=== PATIENT | female | born 1985 | race Caucasian/White ===

== ENCOUNTER 2017-08-29 10:22 | Emergency (ER) | payer MEDICAID, OTHER ==
[~2017-08-29] VITALS: Ht 165.1 cm; Wt 97.5 kg
[2017-08-29 10:24] VITALS: BP 136/90
--- NOTE | 2017-08-29 10:26 | NUR ---
PATIENT TO CHAIR D
--- NOTE | 2017-08-29 10:40 | NUR ---
31/F PRESENT TO ER C/O ALLERGIC REACTION OF HER MEDICATION, AMITRIPTYLINE, WITH FACIAL SWELLING SINCE THIS AM. PT DENIES N/V/D; SKIN IS PINK/WARM/DRY; AAOX4 WITH EVEN AND STEADY GAIT; LUNGS CLEAR BL; HR EVEN AND REGULAR; PT DENIES ANY FEVER, CP, SOB, OR COUGH AT THIS TIME; PATIENT STATES PAIN OF 3/10 AT THIS TIME; VSS; PATIENT POSITIONED FOR COMFORT; HOB ELEVATED; BEDRAILS UP X2; BED DOWN. ER MD MADE AWARE OF PT STATUS.
--- NOTE | 2017-08-29 10:57 | NUR ---
DR. MEDINA EVALUATING PATIENT
[2017-08-29 11:30] VITALS: BP 132/88
--- NOTE | 2017-08-29 11:36 | NUR ---
Patient discharged with v/s stable. Written and verbal after care instructions given and explained. Patient verbalized understanding. Ambulatory with steady gait. All questions addressed prior to discharge. Advised to follow up with PMD.
== END 2017-08-29 11:36 | disposition home or self-care (01) ==
LOC: MED 10:22
DX: R22.0 Localized swelling, mass and lump, head (principal); T43.015A Adverse effect of tricyclic antidepressants, initial encounter; I10 Essential (primary) hypertension; Z85.848 Personal history of malignant neoplasm of other parts of nervous tissue; Z88.8 Allergy status to other drugs, medicaments and biological substances; Z88.6 Allergy status to analgesic agent; Y92.89 Other specified places as the place of occurrence of the external cause
CPT/HCPCS: 99283

== ENCOUNTER 2017-12-01 09:50 | Inpatient (IN) | payer OTHER ==
[~2017-12-01] VITALS: Ht 167.6 cm; Wt 99.8 kg
[2017-12-01 10:04] VITALS: BP 128/101
--- NOTE | 2017-12-01 10:10 | NUR ---
PT AMBULATES TO BED 1, REPORT GIVEN TO EFFIE SOUZA
--- NOTE | 2017-12-01 10:10 | NUR ---
PT. CAME INTO THE ED DUE TO ABD PAIN X 6 MONTHS BUT HAS BEEN WORSE THE LAST WEEK. PT. STATES " I AM SCHEDULED TO HAVE SURGERY BUT IT STILL HAS NOT GONE THROUGH WITH THE INSURANCE BECAUSE I HAVE A MASS IN MY STOMACH THAT HAS ENGULFED ONE OF MY OVARIES". PT AHS 6/10 PAIN THAT IS DESCRIBED TWISTING THAT STARTS ON RLQ AND RADIATES ALL OVER ABD TO RLL. PT. DENIES ANY N/V/D. PT. DENIES ANY FEVERS. PT HAS SOFT AND ROUND ABD. THAT IS TENDER UPON PALPATION ON RLQ. PT. HAS RR EVEN AND UNLABORED. ER MD NOTIFIED. WILL CONTINUE TO MONITOR. AT BEDSIDE. SAFETY PRECAUTIONS IMPLEMENTED.
[2017-12-01] MEDS ORDERED: ONDANSETRON 4 MG/2 ML VIAL IVP ONE (10:45)
[2017-12-01] MEDS ORDERED: MORPHINE SULFATE 4 MG/ML SYR IVP ONE ×2 (10:45→12:50)
--- NOTE | 2017-12-01 11:11 | NUR ---
ULTRASOUND AT BEDSIDE AT THIS TIME
[2017-12-01 11:20] LABS: APPEARANCE,URINE CLEAR (CLEAR); BILIRUBIN,URINE NEGATIVE (NEGATIVE); BLOOD, URINE NEGATIVE (NEGATIVE); COLOR,URINE YELLOW (YELLOW); LEUKOCYTE ESTERASE ,URINE NEGATIVE (NEGATIVE); NITRITE, URINE NEGATIVE (NEGATIVE); UGLUCOSE NEGATIVE (NEGATIVE)
[2017-12-01 11:33] LABS: RBC,URINE 0-5 (RARE) /HPF (0-5); WBC,URINE 0-5 (RARE) /HPF (0-5)
[2017-12-01 11:44] LABS: ANION GAP 15.1 (8-16); CARBON DIOXIDE 25.2 mmol/L (21-32); CREATININE 0.9 mg/dL (0.6-1.3); POTASSIUM 4.3 mmol/L (3.5-5.1)
[2017-12-01 11:50] LABS: ALBUMIN 3.9 g/dL (3.4-5.0); TOTAL BILIRUBIN 0.7 mg/dL (0.0-1.0)
--- NOTE | 2017-12-01 12:30 | NUR ---
PT. RESTING COMFORTABLY IN BED, RR EVEN AND UNLABORED. AT BEDSIDE. WILL CONTINUE TO MONITOR
--- NOTE | 2017-12-01 13:24 | NUR ---
PT. SLEEPING COMFORTABLY IN BED, RR EVEN AND UNLABORED. BED IN LOWEST POSITION. / PAIN AT THIS TIME. WILL CONTINUE TO MONITOR.
[2017-12-01 13:39] LABS: BASOPHILS # (AUTO) 0.1 K/uL (0.00-0.22); BASOPHILS % (AUTO) 0.8 % (0.0-2.0); EOSINOPHILS # (AUTO) 0.2 K/uL (0-0.4); EOSINOPHILS % (AUTO) 3.7 % (0.0-4.0); HEMATOCRIT 41.7 % (36-48); HEMOGLOBIN 14.3 g/dL (12.0-16.0); LYMPHOCYTES # (AUTO) 2.2 K/uL (2.5-16.5); LYMPHOCYTES % (AUTO) 34.2 % (20.5-51.1); MEAN CORPUSCULAR HEMOGLOBIN 31 pg (27-31); MEAN CORPUSCULAR HGB CONC 34 g/dL (33-37); MEAN CORPUSCULAR VOLUME 91.3 fL (80-94); MONOCYTES # (AUTO) 0.4 K/uL (0.8-1.0); MONOCYTES % (AUTO) 6.1 % (1.7-9.3); NEUTROPHILS # (AUTO) 3.5 K/uL (1.8-7.7); NEUTROPHILS % (AUTO) 55.2 % (42.2-75.2); PLATELET COUNT (AUTO) 177 K/uL (140-450); RED BLOOD CELL COUNT(AUTO) 4.57 MIL/uL (4.20-5.40); WHITE BLOOD COUNT (AUTO) 6.4 K/uL (4.8-10.8)
--- NOTE | 2017-12-01 14:30 | NUR ---
PT. RESTING COMFORTABLY, RR EVEN AND UNLABORED. BED IN LOWEST POSITION. WILL CONTINUE TO MONITOR.
[2017-12-01] MEDS ORDERED: ACETAMINOPHEN 325 MG TAB PO PRN (14:45)
--- NOTE | 2017-12-01 15:43 | NUR ---
Patient will be admitted to care of DR. ALBA . Admited to MED SURG . Will go to room 112B. Belongings list completed. Report to EFFIE RODRIGUES .
--- NOTE | 2017-12-01 15:43 | NUR ---
PATIENT ARRIVED ON FLOOR VIA WHEELCHAIR, REPORT GIVEN AT BEDSIDE BY ER NURSE FOR CONTINUITY OF CARE. PATIENT AMBULATED TO BED ON STEADY GAIT. PATIENT AOX4, RESPIRATIONS EVEN AND UNLABORED, IV SITE INTACT, PATENT AND ASYMPTOMATIC, SL AT THE MOMENT. PATIENT STATED 3/10 PAIN, WILL MEDICATE AFTER ASSESSMENT AND SEE WHAT IS ON EMR. PATIENT VERBALIZED UNDERSTANDING. LUNG SOUNDS CLEAR, ACTIVE BOWEL SOUNDS. UPDATED BOARD. SAFETY PRECAUTION IN PLACE, CALL LIGHT WITHIN REACH. WILL CONTINUE TO MONITOR PATIENT.
--- NOTE | 2017-12-01 15:54 | NUR ---
PAGED DR. ALBA, WILL WAIT FOR HIS CALL BACK.
[2017-12-01 16:00] VITALS: BP 121/81
--- NOTE | 2017-12-01 16:15 | NUR ---
PAGED DR. ALBA, WILL WAIT FOR HIS CALL BACK.
--- NOTE | 2017-12-01 16:20 | NUR ---
DR ALBA ON THE FLOOR. IN TO SPEAK WITH THE PATIENT. HE REQUESTED THAT RN BE IN ROOM WELL PER PATIENT'S REQUEST. WHEN RN CAME TO ROOM, PATIENT CRYING AND AGITATED. STATED THAT DR. ALBA WAS NOT LISTENING TO HER AND WAS "CONDESCENDING". DR. ALBA WAS ATTEMPTING TO EXPLAIN PATIENT'S PAIN MEDICATION AND PATIENT'S ALLERGIES. PATIENT'S KODAK, ASKED DR. ALBA TO GO OUTSIDE. KODAK EXPLAINED ABOUT PATIENT'S CONDITION AND STATE OF MIND. RN AND DR. ALBA VERBALIZED UNDERSTANDING AND EXPLAINED THE PLAN OF CARE TO KODAK, HE VERBALIZED UNDERSTANDING. WILL CONTINUE TO MONITOR PATIENT.
[2017-12-01] MEDS: HYDROcodone/APAP 10/325 MG 1 TAB TAB PO PRN (17:00)
--- NOTE | 2017-12-01 17:00 | NUR ---
MEDICATION ADMINISTERED. PATIENT TOLERATED IT WELL. NO SIGNS OF DISTRESS OR SOB NOTED ON ROOM AIR. PATIENT IS MORE CALM, AND DAUGHTER AT BEDSIDE. WILL CONTINUE TO MONITOR.
[2017-12-01] MEDS: LACTATED RINGERS 1,000 ML IV SCH (17:11)
[2017-12-01] MEDS: LORazepam 2 MG/ML VIAL IVP PRN (17:24)
--- NOTE | 2017-12-01 17:30 | NUR ---
PRN MEDICATIONS GIVEN, PATIENT TOLERATED IT WELL. NO SIGNS OF DISTRESS OR SOB NOTED CURRENTLY. PATIENT CALM. WILL CONTINUE TO MONITOR PATIENT.
--- NOTE | 2017-12-01 19:00 | NUR ---
DR GODFREY IN TO SEE THE PATIENT, WILL AWAIT FOR HIS ORDERS.
--- NOTE | 2017-12-01 19:05 | NUR ---
REPORT GIVEN TO FORESTRY FARM LABORER NURSE AT BEDSIDE FOR CONTINUITY OF CARE. PATIENT IN STABLE CONDITION. DR. GODFREY IN TO SEE THE PATIENT. PAGED DR. CHIANG, HE CALLED BACK, SPOKE TO HIM ABOUT PATIENT'S LEXAPRO 20MG HS. NEW ORDERS IN FOR LEXAPRO 20MG HS. ENDORSED TO FORESTRY FARM LABORER NURSE.
--- NOTE | 2017-12-01 19:10 | NUR ---
RECEIVED REPORT FROM RAVI AT BEDSIDE FOR CONTINUITY OF CARE. PT AAOX4. PT IV NOTED RAC 22G LR 100ML/HR. PT HAS NO SOB NO S/S OF DISTRESS ON RA. BED LOWERED CALL LIGHT WITHIN REACH WILL CONTINUE TO MONITOR. DIET NPO AFTER MIDNIGHT BUT SHE IS NPO SINCE 2100.
[2017-12-01] MEDS: ESCITALOPRAM 20 MG TAB PO SCH (21:00)
--- NOTE | 2017-12-01 21:45 | NUR ---
BUCKLE ATTACHER CALLED TO CLARIFY US ORDER FOR PT. ORDER WAS US COMPLETE OF ABDOMEN REASON: ADRENEXAL MASS. US STATED IF REASON FOR US WAS FOR ADRENEXAL MASS THEN PELVIC NON US OB HAD TO BE ORDERED. SHE STATED SHE CANNOT EXCEPT ANY US ORDER FROM A NURSE OR CHARGE NURSE. IT CAN ONLY BE FROM DR. GODFREY. I CALLED DR GODFREY AND CLARIFIED ORDER. DR GODFREY STATED HE DOES NOT NEED US OF ADRENEXAL MASS. HE STATED HE NEEDED COMPLETE US OF ABD. I TOLD HIM THAT US TECH STATED SHE CANNOT EXCEPT ORDER FROM CHARGE NURSE. HE STATED HE WILL NOT PUT IN A NEW ORDER. (US OF COMPLETE ABD VERBAL ORDER WAS GIVEN TO CHARGE NURSE CHEVY). CHARGE NURSE CHEVY CALL US TECH AND LET HER KNOW WHY SHE COULDNT DO US. SHE STATED SHE ONLY EXCEPTS DR TIMO NOT NURSE OR CHARGE NURSE. CHEVY CHARGE NURSE TOLD HER TO WRITE IT DOWN. MANDIE VILLARREALCOLLATING MACHINE OPERATOR CAME BY WAS MADE AWARE OF INCIDENT AND SHE STATED SHE WILL SPEAK TO US TECH. Addendum: 12/02/17 at 0255 by Marisa Negro RN ROW 6: I TOLD HIM THAT US TECH STATED SHE CANNOT ACCEPT ORDER FROM CHARGE NURSE.
[2017-12-01] MEDS: ONDANSETRON 4 MG/2 ML VIAL IVP PRN (22:30)
[2017-12-01] MEDS: MORPHINE SULFATE 4 MG/ML SYR IVP PRN (22:30)
--- NOTE | 2017-12-01 22:45 | NUR ---
MANDIE TALK TO US TECH AND ORDER FOR US ORDER . ORDER HAS BEEN CLARIFIED AND CHANGED AND WILL BE DONE. NEW ORDER US OF PELVIC W NON OB FOR MASS
--- NOTE | 2017-12-01 22:49 | NUR ---
CALLED DIRECTOR OF CASE MANAGEMENT. LEFT MESSAGE KIMBERLY DALE: STATED MY NAME DEPT AND PT NAME AND REASON FOR MY CALL WAS PT WANTED TO CHANGE DOCTOR.
--- NOTE | 2017-12-01 23:30 | NUR ---
ADMIN ZOFRAN 1HR AGO FOR NAUSEA PT STATES SHE NO LONGER FEELS NAUSEATED.
--- NOTE | 2017-12-01 23:30 | NUR ---
ADMIN PAIN MED. PT IS SLEEPING NO SOB NO S/S OF DISTRESS. WILL CONTINUE TO MONITOR.
[2017-12-02] MEDS: LACTATED RINGERS 1,000 ML IV SCH ×2 (00:42→12:30)
[2017-12-02 02:07] VITALS: BP 135/80
[2017-12-02] MEDS: MORPHINE SULFATE 4 MG/ML SYR IVP PRN ×3 (02:29→19:47)
--- NOTE | 2017-12-02 03:00 | NUR ---
CALLED US TO LET THEM KNOW PT IS READY AND HAS BEEN NPO. NO ANSWER.
--- NOTE | 2017-12-02 03:30 | NUR ---
PT WAS GIVEN MORPHINE 4MG 1 HR AGO. PT IS SLEEPING, 0/10 PAIN. WILL CONTINUE TO MONITOR.
--- NOTE | 2017-12-02 05:00 | NUR ---
CALLED US TO LET THEM KNOW PT IS READY AND HAS BEEN NPO. NO ANSWER.
--- NOTE | 2017-12-02 06:00 | NUR ---
CALLED US TO LET THEM KNOW PT IS READY AND HAS BEEN NPO. NO ANSWER.
[2017-12-02 06:53] LABS: BASOPHILS % (AUTO) 0.5 % (0.0-2.0); EOSINOPHILS # (AUTO) 0.2 K/uL (0-0.4); EOSINOPHILS % (AUTO) 3.1 % (0.0-4.0); HEMATOCRIT 39.5 % (36-48); HEMOGLOBIN 13.7 g/dL (12.0-16.0); LYMPHOCYTES # (AUTO) 2.8 K/uL (2.5-16.5); LYMPHOCYTES % (AUTO) 46.3 % (20.5-51.1); MEAN CORPUSCULAR HEMOGLOBIN 32 pg (27-31); MEAN CORPUSCULAR HGB CONC 35 g/dL (33-37); MEAN CORPUSCULAR VOLUME 90.7 fL (80-94); MONOCYTES # (AUTO) 0.4 K/uL (0.8-1.0); MONOCYTES % (AUTO) 6.5 % (1.7-9.3); NEUTROPHILS # (AUTO) 2.6 K/uL (1.8-7.7); NEUTROPHILS % (AUTO) 43.6 % (42.2-75.2); PLATELET COUNT (AUTO) 162 K/uL (140-450); RED BLOOD CELL COUNT(AUTO) 4.35 MIL/uL (4.20-5.40)
--- NOTE | 2017-12-02 07:45 | NUR ---
ENDORSED REPORT TO DAYSHIFT NURSE AT BEDSIDE FOR CONTINUITY OF CARE.
--- NOTE | 2017-12-02 07:47 | NUR ---
LEFT MESSAGE WITH RADIOLOGY TO GIVE MESSAGE TO US TECH THAT PT IS READY FOR US OF ABD.
[2017-12-02 08:00] VITALS: BP 140/75
--- NOTE | 2017-12-02 08:00 | NUR ---
ENDORSED REPORT TO DAYSHIFT NURSE AT BEDSIDE. US PELVIC NON OB KWABENA DIDNT DO THE ORDER.
--- NOTE | 2017-12-02 08:05 | NUR ---
RECEIVED PT FROM NOTE TAKER NURSERADHA, PT IS AWAKE AND LYING ON THE BED WITH AN IV LINE ON THE RT AC G. 20 WITH LR AT 100ML/HR, INTACT. SIDE RAILS ARE UP AND CALL LIGHT WITHIN REACH. PT IS ON NPO AFTER MIDNIGHT AND AWAITING ULTRASOUND PROCEDURE PER NOTE TAKER'S ENDORSEMENT. SPOKE TO PATTI FROM RADIOLOGY AND SHE SAID THAT ULTRASOUND WAS ALREADY DONE TO THE PT YESTERDAY. NOTE TAKER NURSERADHA, RN INFORMED. NO SIGN OF DISTRESS NOTED ON THE PT. WILL CONTINUE TO MONITOR.
--- NOTE | 2017-12-02 08:10 | NUR ---
PT IS AWAKE AND WAS FEELING UPSET WITH THE WAY THE CARE WAS GIVEN TO HER. VITAL SIGNS TAKEN AND IS STABLE. NO SIGN OF DISTRESS NOTED. WILL MONITOR.
[2017-12-02] MEDS: LORazepam 2 MG/ML VIAL IVP PRN (09:13)
--- NOTE | 2017-12-02 09:20 | NUR ---
ULTRASOUND OF THE ABDOMEN IS BEING DONE TO THE PT NOW. ELEMENTARY SCHOOL REGISTRARKWABENA IS PERFORMING THE PROCEDURE. PT REQUESTED TO HAVE AN ATIVAN TAKEN PRIOR TO THE PROCEDURE. MEDICATION GIVEN AND OPT TOLERATED IT. NO SIGN OF DISTRESS NOTED. WILL MONITOR.
--- NOTE | 2017-12-02 09:26 | NUR ---
PATIENT HAS BEEN SCREENED AND CATEGORIZED LOW NUTRITION RISK. PATIENT WILL BE SEEN WITHIN 7 DAYS OF ADMISSION. 12/08/[address]
[2017-12-02] MEDS: ENOXAPARIN 40 MG/0.4 ML SYR SUBQ SCH (10:08)
--- NOTE | 2017-12-02 10:10 | NUR ---
PT IS AWAKE AND VERBALIZED A PAIN RATE OF 6/10. PT WAS MEDICATED AND PT TOLERATED IT. NO SIGN OF DISTRESS NOTED. WILL MONITOR.
--- NOTE | 2017-12-02 12:01 | NUR ---
CM NOTE INITIAL REVIEW FAXED TO [facility] [phone] NAHOMI # [phone]
--- NOTE | 2017-12-02 13:14 | NUR ---
RECEIVED A TELEPHONE ORDER FROM DR. ALBA REGARDING THE PT'S MAGNESIUM LEVEL OF 1.6. DR. ALBA ORDERED FOR 1 GM OF MAGNESIUM RIDER IV ONE TIME AND ORDERED FOR THE DIET TO BE PUT ON A CLEAR LIQUID. ACKNOWLEDGED AND WILL FACILITATE ORDER.
--- NOTE | 2017-12-02 14:06 | NUR ---
CM NOTE RECEIVED CALL FROM NURSE THAT PATIENT WAS REQUESTING TO SPEAK WITH CM. SPOKE WITH PATIENT BEDSIDE, PATIENT'S BEDSIDE. PATIENT WAS REQUESTING TO BE SEEN BY A DIFFERENT ATTENDING PHYSICIAN AND BUSINESS ACCOUNT MANAGER. PER PATIENT, THE DOCTORS MADE HER FEEL INFERIOR TO THEM AND THAT SHE FELT THAT THEY DID NOT HAVE ANY DEFINITE TREATMENT PLAN FOR HER AT THE TIME WHEN THEY SPOKE TO HER. I TOLD HER I WILL ASK MY DEBURR TECHNICIAN WHAT COULD BE DONE ABOUT IT. PATIENT HAS [facility] INSURANCE WITH [employer]. CHARGE NURSE MAKEDA MADE AWARE OF THE PATIENT'S CONCERN AND THAT DR. ALBA HAS TO BE INFORMED OF PATIENT REQUESTING TO BE SEEN BY A DIFFERENT DOCTOR AND BUSINESS ACCOUNT MANAGER. MED-SURG/MACHINE OPERATOR ASSISTANT DEBURR TECHNICIAN DIANNA AWARE AND SHE SAID SHE WILL ALSO SPEAK WITH THE PATIENT TO ADDRESS PATIENT'S CONCERN.
[2017-12-02] MEDS ORDERED: MAG SULF 2000 MG/WATER PREMIX 50 ML IV ONE (14:35)
[2017-12-02] MEDS ORDERED: MAGNESIUM SULFATE 1GM in DEXTROSE 5% 100 ML PREMIX IV SCH (15:00)
[2017-12-02] MEDS: HYDROcodone/APAP 10/325 MG 1 TAB TAB PO PRN (15:38)
--- NOTE | 2017-12-02 15:40 | NUR ---
PT IS AWAKE AND VERBALIZED A PAIN RATE OF 6/10, PT WAS MEDICATED WITH NORCO AND PT TOLERATED IT. PT WANTS TO HAVE 2 PAIN MEDICATIONS BUT WAS ADVISED THAT ONLY ONE MEDICATION FOR PAIN CAN BE GIVEN TO HER. NO OTHER SIGN OF DISCOMFORT NOTED. WILL MONITOR.
[2017-12-02 16:00] VITALS: BP 143/91
--- NOTE | 2017-12-02 19:20 | NUR ---
ENDORSED PT TO WEATHER FORCASTER NURSERADHA FOR CONTINUITY OF CARE. PT IS STABLE AT THIS TIME.
--- NOTE | 2017-12-02 19:21 | NUR ---
RECEIVED REPORT FROM DAYSHIFT NURSE AT BEDSIDE FOR CONTINUITY OF CARE PT AAOX4. PT IV NOTED RAC 20G LR 100ML/HR. NO SOB NO S/S OF DISTRESS ON RA. BED LOWERED CALL LIGHT WITHIN REACH WILL CONTINUE TO MONITOR.
--- NOTE | 2017-12-02 19:30 | NUR ---
CHARGE NURSE MAKEDA MADE A FOLLOW UP CALL TO DR. GODFREY ON HIS CP AND LEFT A MESSAGE REGARDING PT WAITING FOR HIS VISIT. WAITING FOR MD RESPONSE AND ENDORSED TO ORE WASHER NURSE.
[2017-12-02] MEDS: NAPROXEN 500 MG TAB PO PRN (19:47)
--- NOTE | 2017-12-02 20:47 | NUR ---
. MORPHINE WAS ADMIN 1HR AGO AND PT IS CURRENTLY SLEEPING NO SOB NO S/S OF DISTRESS. WILL CONTINUE TO MONITOR.
[2017-12-02] MEDS: ESCITALOPRAM 20 MG TAB PO SCH (22:18)
[2017-12-02] MEDS: DOCUSATE SODIUM 100 MG GELCAP PO SCH (22:18)
[2017-12-02] MEDS: SENNA 8.6 MG TAB PO SCH (22:19)
[2017-12-03] VITALS: BP 136/69
[2017-12-03] MEDS: LACTATED RINGERS 1,000 ML IV SCH ×3 (01:16→16:42)
[2017-12-03 06:40] LABS: BASOPHILS % (AUTO) 0.9 % (0.0-2.0); EOSINOPHILS # (AUTO) 0.2 K/uL (0-0.4); EOSINOPHILS % (AUTO) 3.2 % (0.0-4.0); HEMATOCRIT 39.2 % (36-48); HEMOGLOBIN 13.6 g/dL (12.0-16.0); MEAN CORPUSCULAR HEMOGLOBIN 31 pg (27-31); MEAN CORPUSCULAR HGB CONC 35 g/dL (33-37); MEAN CORPUSCULAR VOLUME 90.5 fL (80-94); MONOCYTES # (AUTO) 0.4 K/uL (0.8-1.0); MONOCYTES % (AUTO) 7.3 % (1.7-9.3); NEUTROPHILS # (AUTO) 2.6 K/uL (1.8-7.7); NEUTROPHILS % (AUTO) 50.6 % (42.2-75.2); PLATELET COUNT (AUTO) 160 K/uL (140-450); RED BLOOD CELL COUNT(AUTO) 4.33 MIL/uL (4.20-5.40); RED CELL DISTRIBUTION WIDTH 12.6 % (11.6-13.7); WHITE BLOOD COUNT (AUTO) 5.2 K/uL (4.8-10.8)
--- NOTE | 2017-12-03 07:32 | NUR ---
ENDORSED REPORT TO DAYSHIFT NURSE AT BEDSIDE FOR CONTINUITY OF CARE.
--- NOTE | 2017-12-03 07:33 | NUR ---
REPORT RECEIVED FROM ARBORIST CLIMBER NURSE, PT SLEEPING QUIETLY IN NAD, RESP EVEN UNLABORED, SKIN WARM DRY COLOR WNL, PLAN OF CARE VIEWED, NO IMMEDIATE NEEDS AT THIS TIME ALL SAFETY MEASURES IN PLACE.
[2017-12-03 07:38] LABS: MAGNESIUM 1.7 mg/dL (1.8-2.4); PHOSPHORUS 3.1 mg/dL (2.5-4.9)
--- NOTE | 2017-12-03 07:54 | NUR ---
DR Estefania GODFREY AT BEDSIDE.
[2017-12-03 08:00] VITALS: BP 128/68
[2017-12-03 08:14] LABS: ANION GAP 11.1 (8-16); CARBON DIOXIDE 27.4 mmol/L (21-32); CREATININE 0.8 mg/dL (0.6-1.3); POTASSIUM 3.5 mmol/L (3.5-5.1)
--- NOTE | 2017-12-03 08:15 | NUR ---
PER DR ESTRELLA PT NEEDS TO TRANSFER TO [facility], SS REQUEST PLACED, DR ALBA MADE AWARE OF DR ESTRELLA'S REQUEST, PT UPDATED WITH PLAN AND VERBALIZED AGREEMENT.
[2017-12-03] MEDS: DOCUSATE SODIUM 100 MG GELCAP PO SCH ×2 (08:49→20:56)
[2017-12-03] MEDS: MORPHINE SULFATE 4 MG/ML SYR IVP PRN ×2 (08:50→19:32)
--- NOTE | 2017-12-03 08:50 | NUR ---
PT C/O ABD PAIN, MORPHINE GIVEN PER ORDER, WILL CONTINUE TO MOTNIR
[2017-12-03] MEDS: ENOXAPARIN 40 MG/0.4 ML SYR SUBQ SCH (09:01)
--- NOTE | 2017-12-03 10:00 | NUR ---
PT RESTING QUIETLY IN NAD, RESP EVEN UNLABORED, SKIN WARMD RY COLOR WNL, WILL CONTINUE TO MONITOR
--- NOTE | 2017-12-03 10:06 | NUR ---
SILVINO NOTE RECEIVED ORDER FOR TRANSFER TO HIGHER LEVEL OF CARE. PER [facility] SILVINO COMER PH# [phone], SEND TO INSURANCE CONTRACTED FACILITY [facility]. SPOKE WITH [facility] CAFE HELPER PADMA PH# [phone] AND SHE REQUESTED FOR CLINICAL INQUIRY TO BE FAXED. FAXED CLINICAL INQUIRY TO [facility] [phone]. JONAH CHOU AWARE.
--- NOTE | 2017-12-03 11:28 | NUR ---
PT VISITING WITH FAMILY, WALKING AROUND WITH STEADY GAIT, DENIES PAIN OR DISCOMFORT, WILL CONTINUE TO MONTIOR
--- NOTE | 2017-12-03 12:26 | NUR ---
CM NOTE PER [facility] SILVINO COMER, FOR [facility] AUTH# [id number]. CHARGE NURSE TANIA CHOUDHARY.
[2017-12-03] MEDS: HYDROcodone/APAP 10/325 MG 1 TAB TAB PO PRN ×2 (12:47→21:52)
[2017-12-03] MEDS: LORazepam 2 MG/ML VIAL IVP PRN (12:47)
--- NOTE | 2017-12-03 12:47 | NUR ---
PT C/O ABD PAIN 5/10 AND FEELING OF BEING ANXIOUS, ATIVAN AND NORCO GIVEN, PT'S DAUGHTER AT BEDSIDE, IVF INFUING WELL, SITE WNL, WILL CONTINUE TO MONITOR
--- NOTE | 2017-12-03 13:19 | NUR ---
CM NOTE CONCURRENT REVIEW FAXED TO [facility] [phone] NAHOMI # [phone]
--- NOTE | 2017-12-03 14:35 | NUR ---
Dr ESTRELLA to speak to oncology OBGYN Dr. Hatch, and was given the phone number per Shi the evaporator supervisor in [place]. Dr Estrella was given the information and will call back. Spoke to Terri, and patient will be accepted by Dr. Meneses [facility] doctor and when patient will go to [place], then will consult OBGYN oncologist. Spoke to Shi the evaporator supervisor in [place] and stated will contact Dr. meneses and will call back this afternoon to give a bed. at this time no bed available. Will follow up later.
--- NOTE | 2017-12-03 15:48 | NUR ---
ACCEPTING DOCTOR AT CALL IS DR MORRISON PER DR ALBA ON THE FLOOR, PT OK TO EAT, REG DIET ORDERED, PT UPDATED WITH PLAN OF CARE, PT VOICED THAT SHE IS HAPPY TO HAVE DR MORRISON PER DOCTOR AT CALL, PT DENIES PAIN, ICE WATER PROVIDED REQUESTED, NO OTHER IMMEDIATE NEEDS AT THIS TIME, WILL CONTINUE TO MONTIOR.
[2017-12-03 15:57] VITALS: BP 144/92
--- NOTE | 2017-12-03 16:02 | NUR ---
PT SITTING UP RESTING QUIETLY IN NAD, RESP EVEN UNLABORED, DENIES PAIN OR DISCOMFORT, DENIES ANY IMMEDIATE NEEDS, WILL CONTINUE TO MONITOR
--- NOTE | 2017-12-03 18:02 | NUR ---
PT DARRIN REGULAR DIET WELL WITHOUT VOMITING OR NAUSEA, PT DENIES PAIN OR DISCOMFORT NOW, IVF CONTINUES, SITE WNL, WILL CONTINUE TO MONITOR.
--- NOTE | 2017-12-03 19:15 | NUR ---
REPORT GIVEN TO BAGGING SALVAGER NURSE, PT IN STABLE CONDITION
--- NOTE | 2017-12-03 19:16 | NUR ---
RECEIVED REPORT FROM DAYSHIFT NURSE AT BEDSIDE FOR CONTINUITY OF CARE. PT AAOX4. PT IV NOTED RAC 20G LR 100ML/HR. NO SOB NO S/S OF DISTRESS ON RA. BED LOWERED CALL LIGHT WITHIN REACH WILL CONTINUE TO MONITOR.
[2017-12-03 20:00] VITALS: BP 129/95
--- NOTE | 2017-12-03 20:32 | NUR ---
PT RECEIVED PAIN MED 1HR AGO. PT IS SLEEPING NO SOB NO S/S OF DISTRESS WILL CONTINUE TO MONITOR.
[2017-12-03] MEDS: ESCITALOPRAM 20 MG TAB PO SCH (20:56)
[2017-12-03] MEDS: SENNA 8.6 MG TAB PO SCH (20:56)
[2017-12-03] MEDS: ONDANSETRON 4 MG/2 ML VIAL IVP PRN (21:52)
--- NOTE | 2017-12-03 21:52 | NUR ---
PT RECEIVED PAIN MED 1HR AGO. PT IS SLEEPING NO SOB NO S/S OF DISTRESS WILL CONTINUE TO MONITOR.
--- NOTE | 2017-12-03 22:53 | NUR ---
PT RECEIVED ZOFRAN FOR NAUSEA. PT STATED SHE NO LONGER FEELS NAUSEATED.
[2017-12-04] MEDS: NAPROXEN 500 MG TAB PO PRN (01:34)
[2017-12-04] MEDS: MORPHINE SULFATE 4 MG/ML SYR IVP PRN ×3 (01:35→16:18)
--- NOTE | 2017-12-04 02:35 | NUR ---
PT RECEIVED PAIN MED 1HR AGO. PT IS SLEEPING NO SOB NO S/S OF DISTRESS WILL CONTINUE TO MONITOR.
[2017-12-04] MEDS: LACTATED RINGERS 1,000 ML IV SCH ×2 (03:10→11:24)
[2017-12-04 03:19] VITALS: BP 122/89
[2017-12-04 06:20] LABS: BASOPHILS % (AUTO) 0.4 % (0.0-2.0); EOSINOPHILS # (AUTO) 0.2 K/uL (0-0.4); EOSINOPHILS % (AUTO) 3.8 % (0.0-4.0); HEMATOCRIT 37.4 % (36-48); HEMOGLOBIN 12.9 g/dL (12.0-16.0); LYMPHOCYTES # (AUTO) 2.4 K/uL (2.5-16.5); LYMPHOCYTES % (AUTO) 43.9 % (20.5-51.1); MEAN CORPUSCULAR HEMOGLOBIN 31 pg (27-31); MEAN CORPUSCULAR HGB CONC 35 g/dL (33-37); MEAN CORPUSCULAR VOLUME 90.8 fL (80-94); MONOCYTES # (AUTO) 0.4 K/uL (0.8-1.0); MONOCYTES % (AUTO) 7.8 % (1.7-9.3); NEUTROPHILS # (AUTO) 2.4 K/uL (1.8-7.7); NEUTROPHILS % (AUTO) 44.1 % (42.2-75.2); PLATELET COUNT (AUTO) 152 K/uL (140-450); RED BLOOD CELL COUNT(AUTO) 4.12 MIL/uL (4.20-5.40); RED CELL DISTRIBUTION WIDTH 12.7 % (11.6-13.7); WHITE BLOOD COUNT (AUTO) 5.4 K/uL (4.8-10.8)
[2017-12-04 07:13] LABS: ANION GAP 10.7 (8-16); CARBON DIOXIDE 28.9 mmol/L (21-32); CREATININE 0.8 mg/dL (0.6-1.3); POTASSIUM 3.6 mmol/L (3.5-5.1)
--- NOTE | 2017-12-04 07:37 | NUR ---
ENDORSED REPORT TO DAYSHIFT NURSE AT BEDSIDE FOR CONTINUITY OF CARE.
--- NOTE | 2017-12-04 07:38 | NUR ---
REPORT RECEIVED FROM LABOR EXPEDITER NURSE, PT RESTING QUIETLY IN NAD, RESP EVEN UNLABORED, SKIN WARM DRY COLOR WNL, IVF INFUSING, SITE WNL, WILL CONTINUE TO MONITOR
--- NOTE | 2017-12-04 07:39 | NUR ---
PLAN OF CARE REVIEWED, NO IMMEDIATE NEEDS IDENTIFIED AT THIS TIME, ALL SAFETY MEASURES IN PLACE
[2017-12-04 07:41] LABS: MAGNESIUM 1.7 mg/dL (1.8-2.4); PHOSPHORUS 3.9 mg/dL (2.5-4.9)
--- NOTE | 2017-12-04 07:58 | NUR ---
PT UP TO BATHROOM WITH STEADY GAIT, PAIN MED GIVEN PER ORDER, PT'S AT BEDSIDE BRIEFLY, WILL CONTINUE TO MONITOR
[2017-12-04 08:00] VITALS: BP 133/87
[2017-12-04] MEDS: ENOXAPARIN 40 MG/0.4 ML SYR SUBQ SCH (08:11)
[2017-12-04] MEDS: DOCUSATE SODIUM 100 MG GELCAP PO SCH (08:12)
[2017-12-04] MEDS: HYDROcodone/APAP 10/325 MG 1 TAB TAB PO PRN (11:24)
[2017-12-04] MEDS: LORazepam 2 MG/ML VIAL IVP PRN (11:31)
--- NOTE | 2017-12-04 11:37 | NUR ---
PT C/O MUSCLE TIGHTNESS AND ABD PAIN, DENIES N/V/D, ATIVAN AND JOSE GIVEN, FAMILY VISITING AT BEDSIDE, WILL CONTINUE TO MONTIOR
--- NOTE | 2017-12-04 13:05 | NUR ---
PT RESTING QUIETLY IN NAD, RESP EVNE NLABORED, SKIN WARMD RY COLOR WNL, DENIES ANY IMMEDIATE NEEDS, AWAITING TRANSFER TO [facility], AWAITING BED ASSIGNMENT, WILL CONTINUE TO MONTIOR.
--- NOTE | 2017-12-04 15:57 | NUR ---
[facility] TRANSPORT WITH [facility] , STONE [facility]ANER TIME WILL BE WITH IN 30 MINUTES RN JONAH AWARE
[2017-12-04 16:00] VITALS: BP 136/79
--- NOTE | 2017-12-04 16:10 | NUR ---
clinical review faxed to [facility] to [phone]
--- NOTE | 2017-12-04 16:15 | NUR ---
CALLED FOR REPORT TO [facility] AT [phone] BUT NURSE NOT AVAILABLE WILL CALL US BACK FOR REPROT
--- NOTE | 2017-12-04 16:25 | NUR ---
REPORT GIVEN TO [facility] EMT, DISCHARGE INSTRUCTION GIVEN AND EXPLAINED TO PT, PT VERBALIZED FULL UNDERSTANDING, PT TRANSFERED TO [facility] ON HER OWN, REPORTS PAIN MANAGEABLE, ZOFRAN GIVEN FOR NAUSEA REQUESTED BY PT, PT TO [facility] VIA [facility] NOW.
[2017-12-04] MEDS: ONDANSETRON 4 MG/2 ML VIAL IVP PRN (16:33)
--- NOTE | 2017-12-04 16:39 | NUR ---
[facility] NURSE LANI CALLED BACK FOR REPORT, REPORT GIVEN TO LANI RN, ALL QUESTIONS ASKED AND ANSWERED, LANI MADE AWARE THAT PT WAS ON HER WAY WITH [facility].
--- NOTE | 2017-12-05 08:42 | NUR ---
DISCHARGE SUMMARY FAXED TO [facility] [phone]
== END 2017-12-04 16:35 | disposition short-term general hospital (02) | DRG 532 ==
LOC: MED 09:50 → MTU 15:19
PROVIDERS: ADMIT Internal Medicine Pulmonary Disease; ATTEND Internal Medicine Pulmonary Disease
DX: N83.202 Unspecified ovarian cyst, left side (principal); E83.42 Hypomagnesemia; I10 Essential (primary) hypertension; Z85.41 Personal history of malignant neoplasm of cervix uteri; Z85.3 Personal history of malignant neoplasm of breast; Z88.6 Allergy status to analgesic agent; Z88.5 Allergy status to narcotic agent; Z88.8 Allergy status to other drugs, medicaments and biological substances; Z91.048 Other nonmedicinal substance allergy status; Z90.710 Acquired absence of both cervix and uterus; Z90.49 Acquired absence of other specified parts of digestive tract
CPT/HCPCS: 36415; 76700; 76830; 80048; 80053; 81001; 83735; 84100; 84702; 85025; 87081; 96374; 96375; 96376; 99285; J1650; J2060; J2270; J2405; J7120; Q0092

== ENCOUNTER 2018-05-04 10:25 | Emergency (ER) | payer OTHER ==
[~2018-05-04] VITALS: Ht 165.1 cm; Wt 97.5 kg
[2018-05-04 10:29] VITALS: BP 120/101
--- NOTE | 2018-05-04 10:32 | NUR ---
PT AMBULATED TO BED 5
--- NOTE | 2018-05-04 10:36 | NUR ---
BIB FAMILY WITH C/O ABD PAIN AND RECTAL BLEEDING TODAY. STATES SHE FILLED THE TOILET WITH BRIGHT AND DARK RED BLOOD. 02/11 PAIN. HX---CERVIAL CANCER, HYSTERECTOMY, KIDNEY SURGERY ON R KIDNEY, LUMP REMOVAL LEFT BREAST, ANXIETY MEDS---XANAX, NAPROXEN, ESCITALOPRAM, NORCO, LORATIDINE
[2018-05-04] MEDS ORDERED: cefTRIAXone 1,000 MG in LIDOCAINE 1% ***ER ONLY *** 2.1 ML IM ONE (10:45)
[2018-05-04] MEDS ORDERED: cefTRIAXone 1,000 MG VIAL ONE (11:00)
[2018-05-04] MEDS ORDERED: LIDOCAINE MPF 1% - 5 mL VIAL 5 ML ONE (11:01)
--- NOTE | 2018-05-04 11:20 | NUR ---
1 gm Rocephin cancelled by Dr. Corbin, medication wasted with 50mg/5ml 1% lidocaine, witnessed and discarded at the medication bin by EFFIE Miller.
[2018-05-04] MEDS ORDERED: NACL 0.9% 1,000 ML IV SCH ×2 (11:22)
[2018-05-04] MEDS ORDERED: ONDANSETRON 4 MG/2 ML VIAL IVP ONE (11:25)
[2018-05-04] MEDS ORDERED: PROMETHAZINE 25 MG/ML VIAL IM ONE (11:25)
[2018-05-04] MEDS ORDERED: HYDROmorphone PFS 2 MG/ML SYR IVP ONE (11:25)
[2018-05-04 11:51] LABS: BASOPHILS # (AUTO) 0.1 K/uL (0.00-0.22); BASOPHILS % (AUTO) 1.1 % (0.0-2.0); EOSINOPHILS # (AUTO) 0.3 K/uL (0-0.4); EOSINOPHILS % (AUTO) 5.3 % (0.0-4.0); HEMATOCRIT 43.7 % (36-48); HEMOGLOBIN 14.7 g/dL (12.0-16.0); LYMPHOCYTES # (AUTO) 2.3 K/uL (2.5-16.5); LYMPHOCYTES % (AUTO) 40.6 % (20.5-51.1); MEAN CORPUSCULAR HEMOGLOBIN 30 pg (27-31); MEAN CORPUSCULAR HGB CONC 34 g/dL (33-37); MEAN CORPUSCULAR VOLUME 90.2 fL (80-94); MONOCYTES # (AUTO) 0.4 K/uL (0.8-1.0); MONOCYTES % (AUTO) 6.6 % (1.7-9.3); NEUTROPHILS # (AUTO) 2.7 K/uL (1.8-7.7); NEUTROPHILS % (AUTO) 46.4 % (42.2-75.2); PLATELET COUNT (AUTO) 177 K/uL (140-450); RED BLOOD CELL COUNT(AUTO) 4.85 MIL/uL (4.20-5.40); RED CELL DISTRIBUTION WIDTH 12.9 % (11.6-13.7); WHITE BLOOD COUNT (AUTO) 5.7 K/uL (4.8-10.8)
--- NOTE | 2018-05-04 12:07 | NUR ---
US AT BEDSIDE
[2018-05-04 12:11] LABS: APPEARANCE,URINE CLEAR (CLEAR); BILIRUBIN,URINE NEGATIVE (NEGATIVE); BLOOD, URINE NEGATIVE (NEGATIVE); COLOR,URINE YELLOW (YELLOW); LEUKOCYTE ESTERASE ,URINE NEGATIVE (NEGATIVE); NITRITE, URINE NEGATIVE (NEGATIVE); PH,URINE 6.5 (5.0-9.0); UGLUCOSE NEGATIVE (NEGATIVE)
[2018-05-04 12:13] LABS: ANION GAP 11.7 (8-16); CARBON DIOXIDE 29.5 mmol/L (21-32); CREATININE 0.7 mg/dL (0.6-1.3); POTASSIUM 4.2 mmol/L (3.5-5.1)
[2018-05-04 12:19] LABS: ALBUMIN 3.6 g/dL (3.4-5.0); TOTAL BILIRUBIN 0.4 mg/dL (0.0-1.0)
[2018-05-04 12:20] LABS: BARBITURATE, URINE NEG. ng/ml (NEG <=200); BENZODIAZEPINE, URINE NEG. ng/mL (NEG <=200); CANNABINOID, URINE POS. ng/mL (NEG <=50); COCAINE, URINE NEG. ng/mL (NEG <=300); OPIATE, URINE POS. ng/mL (NEG <=2000); PHENCYCLIDINE SCREEN,URINE NEG. ng/mL (NEG <=25)
[2018-05-04] MEDS ORDERED: diphenhydrAMINE 50 MG/ML VIAL IVP ONE (12:20)
[2018-05-04] MEDS ORDERED: HYDROmorphone 1 MG/ML AMP IVP ONE (12:20)
--- NOTE | 2018-05-04 12:29 | NUR ---
PT RETURNED FROM CT
--- NOTE | 2018-05-04 14:15 | NUR ---
PER PT REQUEST PT TALKED TO DR WATERMAN REGARDING TEST RESULTS, DR WATERMAN AT BEDSIDE, ANSWERS ALL QUESTIONS TO BOTH PT AND HER , WAS NOT SATISFIED WITH DR ENCARNACION, CHARGED EFFIE ORNELAS NOTIFED, HAND RUG BRAIDER NOTIFED. PT AND WAS SEND TO THE LOBBY AWAITING FOR HAND RUG BRAIDER.
[2018-05-04 14:21] VITALS: BP 134/81
--- NOTE | 2018-05-04 14:21 | NUR ---
Patient discharged with v/s stable. Written and verbal after care instructions given and explained. Patient verbalized understanding. Ambulatory with steady gait. All questions addressed prior to discharge. Advised to follow up with PMD. supervisor winter consulted with Dr Corbin and had conversation with the patient and her at the [facility].
== END 2018-05-04 14:21 | disposition home or self-care (01) ==
LOC: MED 10:25
DX: G89.29 Other chronic pain (principal); R10.2 Pelvic and perineal pain; F41.9 Anxiety disorder, unspecified; Z85.41 Personal history of malignant neoplasm of cervix uteri; Z90.710 Acquired absence of both cervix and uterus; Z88.6 Allergy status to analgesic agent; Z88.8 Allergy status to other drugs, medicaments and biological substances
CPT/HCPCS: 36415; 74176; 80053; 80305; 81003; 82150; 83690; 85025; 85610; 85730; 86886; 86900; 86901; 96372; 96374; 96375; 96376; 99284; J0696; J1170; J1200; J2001; J2405; J2550

== ENCOUNTER 2019-09-29 15:08 | Inpatient (IN) | payer OTHER ==
[~2019-09-29] VITALS: Ht 167.6 cm; Wt 75.7 kg
--- NOTE | 2019-09-29 15:16 | NUR ---
Patient ambulated to bed 6. RN evaluating patient at bedside.
--- NOTE | 2019-09-29 15:17 | NUR ---
ALL HARMFUL OBJECTS REMOVED FROM ROOM, PT PLACED IN GOWN, 1-1 SITTER MONITORING
--- NOTE | 2019-09-29 15:17 | NUR ---
pt cooperative, crying during assessment and triage
[2019-09-29 15:20] VITALS: BP 142/81
--- NOTE | 2019-09-29 15:28 | NUR ---
PT TO RESTROOM WITH BO CHOU
--- NOTE | 2019-09-29 15:32 | NUR ---
Dr. Browning is evaluating the patient at bedside.
--- NOTE | 2019-09-29 15:34 | NUR ---
LAB AT BEDSIDE
--- NOTE | 2019-09-29 15:38 | NUR ---
C/O SUICIDAL IDEATION FOR APPROX 3 DAYS PT STATES SHE WROTE A SUICIDE NOTE AND WAS PLANNING TO SLIT HER WRISTS IN THE RESTROOM BUT INSTEAD DECIDED TO SEEK HELP PT STATES "MY KIDS DONT NEED ME ANYMORE". PT ADMITS SHE HAS 2 KIDS AT HOME AND ANOTHER 2 KIDS THAT LIVE WITH DIFFERENT FATHERS PT STATES SHE HAS FELT SUICIDAL PREVIOUSLY BUT HAS NEVER SOUGHT HELP IN A HOSPITAL OR HAS BEEN ON A 5150 HOLD BEFORE. PT ADDS 11/11 PAIN TO LOWER AB AND R FLANK PAIN-WAS SCHEDULED TO HAVE KIDNEY SURGEY BUT WAS CANCELED DUE TO COVID PT CANT RECALL NAME OF SURGERY PMH- DEPRESSION, ANXIETY, BIPOLAR, L BREAST LUMP REMOVAL, CERVICAL CANCER, FIBROMYALGIA, R KINDEY BLOCKAGE PT STATES SHE HAS BEEN OUT OF HER MEDICATIONS SINCE FRIDAY: LEXAPRO, XANAX, LATUDA, HYDROCODONE
--- NOTE | 2019-09-29 15:45 | NUR ---
EKG AT BEDSIDE
[2019-09-29 15:52] LABS: BASOPHILS % (AUTO) 0.6 % (0.0-2.0); EOSINOPHILS # (AUTO) 0.2 K/uL (0-0.4); EOSINOPHILS % (AUTO) 2.3 % (0.0-4.0); HEMATOCRIT 45.5 % (36-48); HEMOGLOBIN 15.7 g/dL (12.0-16.0); LYMPHOCYTES % (AUTO) 24.9 % (20.5-51.1); MEAN CORPUSCULAR HEMOGLOBIN 32 pg (27-31); MEAN CORPUSCULAR HGB CONC 35 g/dL (33-37); MEAN CORPUSCULAR VOLUME 93.3 fL (80-94); MONOCYTES # (AUTO) 0.4 K/uL (0.8-1.0); NEUTROPHILS # (AUTO) 5.3 K/uL (1.8-7.7); NEUTROPHILS % (AUTO) 67.2 % (42.2-75.2); PLATELET COUNT (AUTO) 193 K/uL (140-450); RED BLOOD CELL COUNT(AUTO) 4.88 MIL/uL (4.20-5.40); RED CELL DISTRIBUTION WIDTH 13.2 % (11.6-13.7); WHITE BLOOD COUNT (AUTO) 7.9 K/uL (4.8-10.8)
--- NOTE | 2019-09-29 16:00 | NUR ---
Telepsychiatry consultation ordered as requested by Dr. Browning.
[2019-09-29 16:05] LABS: ALBUMIN 3.8 g/dL (3.4-5.0); ANION GAP 8.7 (8-16); ASPARTATE AMINOTRANSFERASE 19 U/L (15-37); CARBON DIOXIDE 29.9 mmol/L (21-32); CHLORIDE 105 mmol/L (98-107); CREATININE 0.9 mg/dL (0.6-1.3); GFR ARICAN-AMERICAN 92 mL/min (>90); GLUCOSE 92 mg/dL (74-106); POTASSIUM 3.6 mmol/L (3.5-5.1); SODIUM SERUM 140 mmol/L (136-145); TOTAL BILIRUBIN 0.4 mg/dL (0.0-1.0); UREA NITROGEN, BLOOD 9 mg/dL (7-18)
[2019-09-29] MEDS ORDERED: ESCI20TA PO (16:06)
[2019-09-29] MEDS ORDERED: LURA40TA PO (16:06)
[2019-09-29] MEDS ORDERED: HYDR-5123 PO (16:06)
[2019-09-29 16:07] LABS: ACETAMINOPHEN < 0.5 ug/ml (10-30); SALICYLATE < 2.8 mg/dL (2.8-20.0)
[2019-09-29] MEDS ORDERED: ALPR0.5T2 PO (16:07)
[2019-09-29 16:23] LABS: BARBITURATE, URINE NEGATIVE ng/ml (NEG <=200); BENZODIAZEPINE, URINE POSITIVE ng/mL (NEG <=200); CANNABINOID, URINE POSITIVE ng/mL (NEG <=50); COCAINE, URINE NEGATIVE ng/mL (NEG <=300); OPIATE, URINE NEGATIVE ng/mL (NEG <=2000); PHENCYCLIDINE SCREEN,URINE NEGATIVE ng/mL (NEG <=25)
--- NOTE | 2019-09-29 16:51 | NUR ---
PT SITTING UPRIGHT AWAKE AND ALERT, CALM. DENIES PAIN. VSS. WILL CONTINUE TO MONITOR
--- NOTE | 2019-09-29 16:59 | NUR ---
Note yancy in EDM - 09/29/19 at 1810 by [email or web address] PT SITTING AWAKE IN BED, TEARFUL AT THIS TIME. RR EVEN AND UNLABORED. VSS. WILL CONTINUE TO MONITOR
--- NOTE | 2019-09-29 17:58 | NUR ---
PT C/O 11/[address] MEDINA MADE AWARE
--- NOTE | 2019-09-29 17:59 | NUR ---
PT SITTING AWAKE IN BED, TEARFUL AT THIS TIME. RR EVEN AND UNLABORED. VSS. WILL CONTINUE TO MONITOR
[2019-09-29] MEDS ORDERED: ACETAMINOPHEN EXTRA STRENGTH 500 MG TAB PO ONE (18:00)
--- NOTE | 2019-09-29 18:02 | NUR ---
[place] [employer] Officer Indra is evaluating the patient for 5150 hold at bedside.
--- NOTE | 2019-09-29 19:11 | NUR ---
Pt report RECEIVED FROM EFFIE VILLAREAL . Transfer of care at this time.
--- NOTE | 2019-09-29 20:00 | NUR ---
Packet received for placement
--- NOTE | 2019-09-29 21:45 | NUR ---
[facility], packet fax for review [facility] s/w Brody, no beds. Call in the AM around 9 for any discharges. Packet fax [facility] s/w no answer. Will call again
--- NOTE | 2019-09-29 21:56 | NUR ---
[facility] still no answer. Packet faxed
--- NOTE | 2019-09-29 22:02 | NUR ---
[facility] s/w Catrina no beds, [facility]. Packet faxedfor wait list
[2019-09-29 22:20] VITALS: BP 124/59
[2019-09-29] MEDS ORDERED: ACETAMINOPHEN 650 MG SUPP RC PRN (22:25)
[2019-09-29] MEDS ORDERED: ALUMINUM HYD/MAG/SIMETHICONE 30 ML UDC PO PRN (22:25)
[2019-09-29] MEDS ORDERED: LORazepam 2 MG/ML VIAL IVP PRN (22:25)
[2019-09-29] MEDS ORDERED: IPRATROPIUM 0.02% 0.5 MG/2.5 ML NEBU INH PRN (22:25)
[2019-09-29] MEDS ORDERED: ZOLPIDEM 5 MG TAB PO PRN (22:25)
[2019-09-29] MEDS ORDERED: cloNIDine 0.1 MG TAB PO PRN (22:25)
[2019-09-29] MEDS ORDERED: ACETAMINOPHEN 325 MG TAB PO PRN (22:25)
[2019-09-29] MEDS ORDERED: HYDROcodone/APAP 5/325 MG 1 TAB TAB PO PRN ×2 (22:25)
[2019-09-29] MEDS ORDERED: guaiFENesin DM 200/20 MG-10 ML 10 ML UDC PO PRN (22:25)
[2019-09-29] MEDS ORDERED: ALBUTEROL 0.083% 2.5 MG/3 ML NEBU INH PRN (22:25)
[2019-09-29] MEDS ORDERED: ONDANSETRON 4 MG/2 ML VIAL IVP PRN (22:25)
[2019-09-29] MEDS ORDERED: MAGNESIUM OXIDE 400 MG TAB PO PRN (22:25)
[2019-09-29] MEDS ORDERED: SODIUM PHOSPHATE 118 ML ENEM RC PRN (22:25)
[2019-09-29] MEDS ORDERED: MAG SULF 2000 MG/WATER PREMIX 50 ML IV PRN (22:25)
[2019-09-29] MEDS ORDERED: BISACODYL 10 MG SUPP RC PRN (22:25)
[2019-09-29] MEDS ORDERED: DOCUSATE SODIUM 250 MG GELCAP PO PRN (22:25)
[2019-09-29] MEDS ORDERED: POTASSIUM CHLORIDE 10 MEQ TABER PO PRN (22:25)
[2019-09-29] MEDS ORDERED: MORPHINE SULFATE 2 MG/ML SYR IVP PRN (22:25)
[2019-09-29] MEDS ORDERED: diphenhydrAMINE 50 MG/ML VIAL IVP PRN (22:25)
--- NOTE | 2019-09-29 22:25 | NUR ---
Patient will be admitted to care of DR. MILLAN . Admited to Med/Surg. Will go to room 109B. Belongings list completed. Report to KIKE ASHFORD.
--- NOTE | 2019-09-29 23:20 | NUR ---
PT ARRIVED FROM ER VIA WHEELCHAIR. REPORT RECEIVED FROM ER NURSE. PT IS AWAKE, ALERT, AND ORIENTED. AMBULATORY, ABLE TO MAKE NEEDS KNOWN. RESPIRATIONS EVEN AND UNLABORED TO ROOM AIR. SKIN IS WARM, DRY, AND INTACT. VERBALIZES TOLERABLE BACK AND ABDOMINAL PAIN AT THIS TIME. PT IS CALM AND COOPERATIVE TO CARE. PT ORIENTED TO ROOM. VITAL SIGNS TAKEN. MRSA SWAB COLLECTED. NO REQUESTS AT THIS TIME. SAFETY MEASURES IN PLACE. SUICIDE PRECAUTIONS OBSERVED. SITTER AT BEDSIDE. WILL CONTINUE TO MONITOR.
[2019-09-29] MEDS: ALPRAZolam 0.5 MG TAB PO PRN (23:48)
--- NOTE | 2019-09-29 23:48 | NUR ---
PT VERBALIZED ANXIETY. PRN XANAX GIVEN ORDERED. SAFETY MEASURES IN PLACE. WILL CONTINUE TO MONITOR.
[2019-09-30] VITALS: BP 121/83
--- NOTE | 2019-09-30 01:54 | NUR ---
PT ASLEEP. VISIBLE CHEST RISE AND FALL NOTED. NO S/SX OF DISTRESS. SAFETY MEASURES IN PLACE. SITTER AT BEDSIDE. WILL CONTINUE TO MONITOR.
--- NOTE | 2019-09-30 04:17 | NUR ---
PT ASLEEP. NO S/SX OF DISTRESS NOTED. PT KEPT COMFORTABLE. SAFETY MEASURES IN PLACE. SITTER AT BEDSIDE. WILL CONTINUE TO MONITOR.
--- NOTE | 2019-09-30 05:19 | NUR ---
Still no beds at any of the designated facilities. Will endorse to incoming shift to seek further placement during their shift
--- NOTE | 2019-09-30 07:11 | NUR ---
ENDORSED TO DAYSHIFT NURSE FOR CONTINUITY OF CARE. PT IS IN STABLE CONDITION.
--- NOTE | 2019-09-30 07:20 | NUR ---
RECEIVED PT FROM TRIPLE DRUM OPERATOR NURSE. PT IS ALERT, AWAKE, WITH NO SIGNS OF DISTRESS OR COMPLAINTS OF PAIN AT THIS TIME. PT AMBULATED TO RESTROOM WITH STEADY GAIT. RESPIRATIONS ARE EVEN AND UNLABORED ON ROOM AIR. SKIN IS INTACT WITH NO IV SITE. SAFETY MEASURES IN PLACE AND WILL CONTINUE TO MONITOR.
[2019-09-30 08:00] VITALS: BP 119/45
--- NOTE | 2019-09-30 08:05 | NUR ---
Received report from sql report analyst. There are no beds at this time. [facility] still looking for placement.
[2019-09-30] MEDS ORDERED: NON-FORMULARY ITEM (Lurasidone HCl (Latuda) 20 MG) PO SCH (09:00)
--- NOTE | 2019-09-30 09:17 | NUR ---
PATIENT HAS BEEN SCREENED AND CATEGORIZED LOW NUTRITION RISK. PATIENT WILL BE SEEN WITHIN 7 DAYS OF ADMISSION. 10/06/[address]
[2019-09-30] MEDS: ESCITALOPRAM 20 MG TAB PO SCH (09:33)
--- NOTE | 2019-09-30 09:35 | NUR ---
ADMINISTERED MEDICATIONS PER ORDER AND TOLERATED WELL. PT STATES THAT SHE WANTS TO USE HER PHONE TO CHECK ON HER CHILDREN BUT SHE WILL WAIT. SAFETY MEASURES IN PLACE ADN WILL CONTINUE OT MONITOR.
--- NOTE | 2019-09-30 10:52 | NUR ---
PHARMACY CALLED REGARDING PTS LATUDA MEDICATION. PHARMACY DOES NOT HAVE THIS MEDICATIONS IN STOCK. PT STATED THAT SHE DOES NOT HAVE HER REFILL AT HOME. WILL CONSULT WITH ATTENDING REGARDING NEXT STEPS FOR THIS MEDICATION. SAFETY MEASURES IN PLACE AND WILL CONTINUE TO MONITOR.
--- NOTE | 2019-09-30 11:14 | NUR ---
DISCHARGE PLANNING: THIS IS A 34 Y/O FEMALE PATIENT FROM HOME, WHO CAME IN DUE TO SUICIDAL IDEATION. PAST MEDICAL HISTORY INCLUDE CERVICAL CA AND RENAL DISEASE. INITIAL DIAGNOSIS OF 5150. CURRENT LABS WNL. UDS SHOWED BENZO AND CANNABINOIDS. PSYCHE CONSULT IN PLACE - NOT SEEN YET. DC PLAN PENDING PSYCHE'S RECOMMENDATIONS.
--- NOTE | 2019-09-30 12:40 | NUR ---
PT IS CURRENTLY SITTING UP IN BED, EATING LUNCH WITH NO SIGNS OF DISTRESS. SAFETY MEASURES IN PLACE AND WILL CONTINUE OT MONITOR.
--- NOTE | 2019-09-30 13:41 | NUR ---
PT IS CURRENTLY LAYING IN BED SLEEPING WITH NO SIGNS OF DISTRESS. PT FINISHED EATING LUNCH AND DOES NOT COMPLAIN OF ANY PAIN. SAFETY MEASURES IN PLACE AND WILL CONTINUE TO MONITOR.
--- NOTE | 2019-09-30 14:34 | NUR ---
MESH MAN NOTE: Basic Screen: Yes High Risk DC Screen [place]: LANI Schmitz Relationship: MOTHER Pre-Admission Living Arrangements: Lives with Other Prior ADL Independent Current Home Health Name/Tel: N/A Current DME/02 Name/Tel: N/A Current Hospice Name/Tel: N/A Current Dialysis Name/Tel: N/A Healthcare Decision Maker: Patient Advance Directive No Physician Orders for Life Sustaining Treatment Form No Information Taught: Community Resources Person Taught: Patient Teaching Tools: Community Resources Verbal Factors Affecting Learning: None Participation Level: Refused Evaluation: Verbalizes Understanding Needs Additional Education: No Discipline: Case Mgt/Social Svcs Tentative Discharge Plan/Destination: No Needs Identified Will require assistance post discharge: No Referred to Continuity Reader: No Tentative Discharge Plan Summary: PATIENT IS A 34-YEAR-OLD FEMALE ADMITTED FOR SUICIDAL IDEATION. PATIENT HAS PMHX OF CERVICAL CANCER AND RENAL DISEASE. PATIENT WAS ADMITTED FROM HOME WHERE SHE LIVES WITH HER CHILDREN AND ROOMMATE. SW MET WITH PATIENT AT BEDSIDE TO VERIFY DEMOGRAPHICS. PER PATIENT, SHE LIVES WITH ROOMMATE SAUMYA ALLISON WHO IS CURRENTLY WATCHING HER CHILDREN. SW ASSESSED FOR RISK BUT NONE WERE APPARENT. PATIENT STATED THAT SHE IS NOT CURRENTLY EXPERIENCING SI/HI OR AH/VH. PATIENT STATED SHE HAS A HISTORY OF BIPOLAR DISORDER AND HAS A THERAPIST AND PSYCHIATRIST OUT OF [facility]. PATIENT REFUSED ADDITIONAL MENTAL HEALTH RESOURCES. PATIENT STATED THAT HER THERAPIST'S NAME IS FLORINA AND THAT HER PSYCHIATRIST IS DR. DELEON. PATIENT REPORTS NO HISTORY OF SUBSTANCE ABUSE. TENTATIVE DISCHARGE PLAN IS FOR PATIENT TO GO TO PSYCHIATRIC FACILITY PENDING PSYCHIATRIC CONSULT. NO FURTHER NEEDS IDENTIFIED. Signature: LEROY HICKS Date: September 30, 2019 Time: 14:33 Addendum: 09/30/19 at 1644 by Yeison Waite SS NOLAN CONSULTED WITH DR. MONAHAN REGARDING PATIENT'S DISCHARGE PLAN. PATIENT SPOKE WITH EFFIE URIBE TO PROVIDE PATIENT CELL PHONE TO MAKE ARRANGEMENTS FOR CHILDREN TO BE CARED FOR DURING PATIENT'S 5150. PATIENT STATED THAT CHILDREN WERE UNDER THE CARE OF ROOMMATE SAUMYA ALLISON [phone] AND ARE NOW UNDER THE CARE OF CURTIS DALLAS [phone]. SW FILED CPS REPORT THROUGH [facility] [phone] - JANIE ZAYAS - CASE #[id number]. NOLAN WILL FOLLOW UP NEEDED.
--- NOTE | 2019-09-30 15:50 | NUR ---
DR. MONAHAN IS CURRENTLY SPEAKING WITH PT. PT IS IN NO SIGNS OF DISTRESS. PT WANTS PHONE OT CALL HER CHILDREN AND MAKE SURE EVERYTHING IS OKAY. WILL FOLLOW UP WITH DR. MONAHAN PLAN OF CARE.
--- NOTE | 2019-09-30 17:12 | NUR ---
PT IS CURRENTLY ALERT, AWAKE AND SITTING UP IN BED. NO SIGNS OF DISTRESS NOTED AND WILL CONTINUE TO MONITOR PLAN OF CARE.
--- NOTE | 2019-09-30 18:33 | NUR ---
PT IS CURRENTLY AWAKE AND SITTING UP IN BED. PT DOES NOT HAVE ANY CONCERNS OR COMPLAINTS AT THIS TIME. SAFETY MEASURES IN PLACE AND WILL CONTINUE OT MONITOR. WILL ENDORSE TO TREATMENT SPECIALIST NURSE FOR CONTINUITY OF CARE.
--- NOTE | 2019-09-30 19:00 | NUR ---
RECD. RESTING IN BED, AWAKE, A/OX4. RESPIRATION EVEN AND UNLABORED. NO IV LINE, REFUSED IV INSERTION. AMBULATORY TO THE BR. DENIES THOUGHTS OF HURTING SELF BUT HAVE FEELING OF ANXIETY. SITTER MONITORING PATIENT NEAR DOOR. DENIES PAIN 0/10.
--- NOTE | 2019-09-30 19:30 | NUR ---
Patient's Plan of Care was discussed and reviewed with SPECIAL INVESTIGATION UNIT INVESTIGATOR: DEJON ARNOLD
[2019-09-30] MEDS: ALPRAZolam 0.5 MG TAB PO PRN (19:51)
--- NOTE | 2019-09-30 19:51 | NUR ---
WITH ANXIETY, MEDICATED WITH XANAX PER MD ORDER.
[2019-09-30 20:00] VITALS: BP 135/75
--- NOTE | 2019-09-30 20:50 | NUR ---
NO ANXIETY, RESTING COMFORTABLY IN BED.
--- NOTE | 2019-10-01 | NUR ---
SLEEPING COMFORTABLY IN BED.
--- NOTE | 2019-10-01 02:00 | NUR ---
AMBULATED TO BR TO VOID, BACK TO BED AFTER VOIDING AND GOES BACK TO SLEEP.
--- NOTE | 2019-10-01 04:00 | NUR ---
WENT TO BR TO VOID, BACK TO BED AND GOES BACK TO SLEEP.
--- NOTE | 2019-10-01 06:50 | NUR ---
ABLE TO SLEEP WELL. CONDITION REMAIN STABLE. NEW SITTER MONITORING PATIENT NEAR DOOR. WILL ENDORSE TO AM SHIFT NURSE FOR CONTINUITY OF CARE.
--- NOTE | 2019-10-01 07:15 | NUR ---
RECEIVED PT FROM THE PM RN. PT SPEAKS MALAGASY AND IS ASLEEP ON THE BED AT THIS MOMENT. PT IS IN 5150 WITH A ONE TO ONE SITTER AT THE BEDSIDE. RESPIRATION EVEN AND UNLABORED WITHOUT ANY SIGN AND DISTRESS OF ACUTE DISTRESS. SKIN IS WARM, DRY, AND INTACT. CALL LIGHT WITHIN REACH. BED LOCKED, IN LOW POSITION. ALL SAFETY MEASURE IN PLACE. WILL CONTINUE TO MONITOR.
--- NOTE | 2019-10-01 07:34 | NUR ---
Received report from night shift supervisor. There are no beds at this time.
[2019-10-01 08:00] VITALS: BP 131/68
[2019-10-01] MEDS: ESCITALOPRAM 20 MG TAB PO SCH (08:36)
--- NOTE | 2019-10-01 08:40 | NUR ---
PT RECEIVED AM MEDICATION PER MD ORDER. MED EDUCATION PROVIDED TO PT, PT VERBALIZED UNDERSTANDING AND TOLERATED PO MEDICATIONS WELL. PT IS RESTING ON BED AND EATING BREAKFAST AT THIS TIME. CELL LIGHT WITHIN REACH, BED LOCKED, IN LOW POSITION. 1:1 SITTER IS AT THE BEDSIDE. ALL SAFETY MEASURES IN PLACE. WILL CONTINUE TO MONITOR.
--- NOTE | 2019-10-01 10:43 | NUR ---
PT IS PACING IN THE ROOM AT THIS MOMENT. NO ACUTE DISTRESS NOTED. 1:1 SITTER IS MONITORING PT AT THE DOORWAY. ALL SAFETY MEASURE IN PLACE. WILL CONTINUE TO MONITOR.
--- NOTE | 2019-10-01 11:25 | NUR ---
PT COMPLAINED OF HEADACHE, PAIN 5/10. REPOSITION AND TAUGHT PT RELAXATION METHODS. PT VERBALIZED UNDERSTANDING AND STATED "PAIN DID NOT GO AWAY." NORCO WILL BE ADMINISTERED FOR PAIN.
--- NOTE | 2019-10-01 12:25 | NUR ---
REASSESSED PT FOR PAIN. PT DENIES PAIN AND IS RESTING ON THE BED COMFORTABLY. NO ACUTE SIGN OF DISTRESS NOTED. 1:1 SITTER AT THE BEDSIDE. WILL CONTINUE TO MONITOR PT.
--- NOTE | 2019-10-01 13:29 | NUR ---
PT IS ASLEEP ON THE BED AT THIS MOMENT. RESPIRATION EVEN AND UNLABORED, WITHOUT ANY ACUTE SIGN AND SYMPTOMS OF DISTRESS. 1:1 SITTER AT THE BEDSIDE. WILL CONTINUE TO MONITOR.
[2019-10-01] MEDS ORDERED: LURA40TA PO (14:27)
[2019-10-01] MEDS ORDERED: ESCI20TA PO (14:27)
[2019-10-01 14:54] VITALS: BP 131/68
--- NOTE | 2019-10-01 15:15 | NUR ---
PT IS AWAKE AT THIS MOMENT, WAITING TO BE DISCHARGED. RESPIRATION EVEN AND UNLABORED, WITHOUT ANY SIGN OF ACUTE DISTRESS NOTED. 1:1 SITTER AT THE BEDSIDE. ALL SAFETY MEASURE IN PLACE.
--- NOTE | 2019-10-01 15:45 | NUR ---
GIVEN DISCHARGE INSTRUCTIONS. REMOVED ID BAND AND IV SITE.
--- NOTE | 2019-10-01 15:50 | NUR ---
PATIENT REFUSED FLU VACCINATION
--- NOTE | 2019-10-01 16:00 | NUR ---
DISCHARGED PATIENT ON FOOT. PATIENT IS IN STABLE CONDITION. DENIES SUICIDAL IDEATION
== END 2019-10-01 16:00 | disposition home or self-care (01) | DRG 753 ==
LOC: MED 15:08 → MTU 21:49
PROVIDERS: ADMIT Internal Medicine Pulmonary Disease; ATTEND Internal Medicine Pulmonary Disease
DX: F31.9 Bipolar disorder, unspecified (principal); R45.851 Suicidal ideations; Z91.14 Patient's other noncompliance with medication regimen; N20.0 Calculus of kidney; F12.99 Cannabis use, unspecified with unspecified cannabis-induced disorder; N18.9 Chronic kidney disease, unspecified; F41.9 Anxiety disorder, unspecified; G89.29 Other chronic pain; Z88.8 Allergy status to other drugs, medicaments and biological substances; Z85.89 Personal history of malignant neoplasm of other organs and systems; Z90.710 Acquired absence of both cervix and uterus
CPT/HCPCS: 36415; 80053; 80305; 85025; 87081; 93005; 99284; G0480; G0482